=== PATIENT | male | born 1960 | race Caucasian/White ===

== ENCOUNTER 2016-08-12 07:28 | Observation (INO) | payer OTHER ==
--- NOTE | 2016-08-12 08:02 | EDM.PDOC ---
ED HPI GENERAL MEDICAL PROBLEM - General Chief Complaint: Chest Pain Stated Complaint: DIZZY Time Seen by Provider: 08/12/16 07:44 - History of Present Illness INITIAL COMMENTS - FREE TEXT/NARRATIVE: HISTORY AND PHYSICAL: History of present illness: Patient's age 56-year-old white male presents with concern of dizziness confusion chest pain intermittent dyspnea over last 24-48 hours he states he does drink regularly but denies history of known alcoholism he denies drugs denies trauma denies numbness weakness visual disturbance or other neurological signs or symptoms Review of systems: As per history of present illness and below otherwise all systems reviewed and negative. Past medical history: As per history of present illness and as reviewed below otherwise noncontributory. Surgical history: As per history of present illness and as reviewed below otherwise noncontributory. Social history: No reported history of drug or alcohol abuse. Family history: As per history of present illness and as reviewed below otherwise noncontributory. Physical exam: HEENT: Atraumatic, normocephalic, pupils reactive, negative for conjunctival pallor or scleral icterus, mucous membranes moist, throat clear, neck supple, nontender, trachea midline. Lungs: Clear to auscultation, breath sounds equal bilaterally, chest nontender. Heart: S1S2, regular, negative for clicks, rubs, or JVD. Abdomen: Soft, nondistended, nontender. Negative for masses or hepatosplenomegaly. Negative for costovertebral tenderness. Pelvis: Stable nontender. Genitourinary: Deferred. Rectal: Deferred. Extremities: Atraumatic, negative for cords or calf pain. Neurovascular unremarkable. Neuro: Awake, alert, oriented. Cranial nerves II through XII unremarkable. Cerebellum unremarkable. Motor and sensory unremarkable throughout. Exam nonfocal. Diagnostics: CBC CMP troponin PT INR ammonia level carboxyhemoglobin chest x-ray EKG CT brain EtOH UDS ABG Therapeutics: IV O2 monitor Impression: #1 dizziness #2 history of chest pain #3 history of dyspnea #4 altered mental status Definitive disposition and diagnosis as appropriate pending reevaluation and review of above. - Related Data Allergies Allergy/AdvReac Type Severity Reaction Status Date / Time No Known Allergies Allergy Verified 08/12/16 07:35 Home Meds: Home Meds Finasteride 1 tab PO DAILY 01/30/16 [History] Meloxicam [Mobic] 1 tab PO DAILY 01/30/16 [History] Naproxen Sodium [Aleve] 1 tab PO DAILY PRN 01/30/16 [History] Tamsulosin HCl [Flomax] 0.4 mg PO DAILY 01/30/16 [History] Past Medical History HEENT History: Reports: None Cardiovascular History: Reports: None Respiratory History: Reports: Asthma, COPD, SOB Gastrointestinal History: Reports: GERD Other Gastrointestinal History: Occasional heartburn/GERD Genitourinary History: Reports: BPH Musculoskeletal History: Reports: Back pain, chronic, Fracture, Other (see below ) Other Musculoskeletal History: Right shoulder pain after injury, current fracture Rt Index finger Neurological History: Reports: None Psychiatric History: Reports: None Endocrine/Metabolic History: Reports: Obesity/BMI 30+ Hematologic History: Reports: None Immunologic History: Reports: None Oncologic (Cancer) History: Reports: None Dermatologic History: Reports: Other (see below) Other Dermatologic History: "Jock itch", tried many things...not clearing - Infectious Disease History Infectious Disease History: Reports: Chicken pox, Measles - Past Surgical History Head Surgeries/Procedures: Reports: None HEENT Surgical History: Reports: Oral surgery Respiratory Surgical History: Reports: None GI Surgical History: Reports: Appendectomy, Colonoscopy Endocrine Surgical History: Reports: None Neurological Surgical History: Reports: None Musculoskeletal Surgical History: Reports: None - History Comment History Comment: etoh "DAILY" Social & Family History - Family History Family Medical History: Noncontributory - Tobacco Use Smoking Status *Q: Current Some Day Smoker Packs/Tins Daily: 0.5 - Caffeine Use Caffeine Use: Reports: Coffee - Recreational Drug Use Recreational Drug Use: No Drug Use in Last 12 Months: No Recreational Drug Type: Reports: Marijuana/Hashish (NONE FOR 15 YEARS.) Other Recreational Drug Type: [place] not relevant, he answered "no drugs for 30 yrs, denies any use of injectible drugs" ED ROS GENERAL - Review of Systems Review Of Systems: ROS reveals no pertinent complaints other than HPI. ED EXAM, GENERAL - Physical Exam Exam: See Below (See dictation) Course - Vital Signs Last Recorded V/S: Last Vital Signs Temp 36.1 C 08/12/16 07:30 Pulse 78 08/12/16 07:30 Resp 18 08/12/16 07:30 BP 146/105 H 08/12/16 07:30 Pulse Ox 98 08/12/16 07:54 - Orders/Labs/Meds Orders: Active Orders 24 hr Category Date Time Status Patient Status [ADT] Stat ADT 08/12/16 09:44 Ordered Blood Glucose Check, Bedside [RC] ONETIME Care 08/12/16 07:41 Active Cardiac Monitoring [RC] . DIRECTED Care 08/12/16 07:39 Active EKG Documentation Completion [RC] STAT Care 08/12/16 07:39 Active Oxygen Therapy, ED [RC] ASDIRECTED Care 08/12/16 07:39 Active Head wo Cont [CT] Stat Exams 08/12/16 07:39 Taken MVI, Adult with Vitamin K [Infuvite Adult] 10 ml Med 08/12/16 09:41 Active Thiamine [Vitamin B-1] 100 mg Folic Acid 1 mg Sodium Chloride 0.9% [Normal Saline] 1,000 ml IV ONETIME Medication Orders Multivitamins/Minerals 10 ml/Thiamine HCl 100 mg/ Folic Acid 1 mg/ Sodium Chloride 1,011.2 mls @ 999 mls/hr IV ONETIME ONE Stop: 08/12/16 10:41 Labs: Laboratory Tests 08/12/16 08/12/16 08/12/16 Range/Units 07:40 07:40 07:40 WBC 7.53 (4.0-11.0) K/uL RBC 4.47 L (4.50-5.90) M/uL Hgb 14.5 (13.0-17.0) g/dL Hct 43.9 (38.0-50.0) % MCV 98.2 H (80.0-98.0) fL MCH 32.4 H (27.0-32.0) pg MCHC 33.0 (31.0-37.0) g/dL RDW Std Deviation 46.6 (28.0-62.0) fl RDW Coeff of Natalie 13 (11.0-15.0) % Plt Count 275 (150-400) K/uL MPV 8.90 (7.40-12.00) fL Neut % (Auto) 46.0 L (48.0-80.0) % Lymph % (Auto) 45.3 H (16.0-40.0) % [place] % (Auto) 4.4 (0.0-15.0) % Eos % (Auto) 3.9 (0.0-7.0) % Baso % (Auto) 0.4 (0.0-1.5) % Neut # (Auto) 3.5 (1.4-5.7) K/uL Lymph # (Auto) 3.4 H (0.6-2.4) K/uL [place] # (Auto) 0.3 (0.0-0.8) K/uL Eos # (Auto) 0.3 (0.0-0.7) K/uL Baso # (Auto) 0.0 (0.0-0.1) K/uL Nucleated RBC % 0.0 /100WBC Nucleated RBCs # 0 K/uL ABG pH (7.35-7.45) ABG pCO2 (35-45) mmHG ABG pO2 (75-100) mmHG ABG HCO3 (22-26) mEq/L ABG Total CO2 ABG Base Excess (-2.0-2.0) ABG Carboxyhemoglobin (0-15) % Sodium 142 (136-146) mmol/L Potassium 3.9 (3.5-5.1) mmol/L Chloride 108 (98-110) mmol/L Carbon Dioxide 23 (21-31) mmol/L BUN 21 (6.0-23.0) mg/dL Creatinine 1.0 (0.6-1.5) mg/dL Est Cr Clr Drug Dosing 76.20 mL/min Estimated GFR (MDRD) > 60.0 ml/min Glucose 98 (60-110) mg/dL Calcium 8.4 L (8.8-10.8) mg/dL Total Bilirubin 0.5 (0.1-1.5) mg/dL AST 33 (5-40) IU/L ALT 24 (8-54) IU/L Alkaline Phosphatase 51 (40-150) Ammonia (14-68) UG/DL Troponin I < 0.10 (0.0-0.29) NG/ML Total Protein 7.7 (6.0-8.0) g/dL Albumin 3.9 (3.5-5.0) g/dL Globulin 3.8 H (2.0-3.5) g/dL Albumin/Globulin Ratio 1.0 L (1.3-2.8) Urine Opiates Screen (NEGATIVE) Ur Oxycodone Screen (NEGATIVE) Urine Methadone Screen (NEGATIVE) Ur Barbiturates Screen (NEGATIVE) Ur Phencyclidine Scrn (NEGATIVE) Ur Amphetamine Screen (NEGATIVE) U Methamphetamines Scrn (NEGATIVE) U Benzodiazepines Scrn (NEGATIVE) U Cocaine Metab Screen (NEGATIVE) U Marijuana (THC) Screen (NEGATIVE) Ethyl Alcohol 123.3 mg/dL 08/12/16 08/12/16 08/12/16 Range/Units 07:40 07:40 08:17 WBC (4.0-11.0) K/uL RBC (4.50-5.90) M/uL Hgb (13.0-17.0) g/dL Hct (38.0-50.0) % MCV (80.0-98.0) fL MCH (27.0-32.0) pg MCHC (31.0-37.0) g/dL RDW Std Deviation (28.0-62.0) fl RDW Coeff of Natalie (11.0-15.0) % Plt Count (150-400) K/uL MPV (7.40-12.00) fL Neut % (Auto) (48.0-80.0) % Lymph % (Auto) (16.0-40.0) % [place] % (Auto) (0.0-15.0) % Eos % (Auto) (0.0-7.0) % Baso % (Auto) (0.0-1.5) % Neut # (Auto) (1.4-5.7) K/uL Lymph # (Auto) (0.6-2.4) K/uL [place] # (Auto) (0.0-0.8) K/uL Eos # (Auto) (0.0-0.7) K/uL Baso # (Auto) (0.0-0.1) K/uL Nucleated RBC % /100WBC Nucleated RBCs # K/uL ABG pH 7.398 (7.35-7.45) ABG pCO2 37 (35-45) mmHG ABG pO2 80 (75-100) mmHG ABG HCO3 23 (22-26) mEq/L ABG Total CO2 20.3 ABG Base Excess -1.5 (-2.0-2.0) ABG Carboxyhemoglobin 2.5 (0-15) % Sodium (136-146) mmol/L Potassium (3.5-5.1) mmol/L Chloride (98-110) mmol/L Carbon Dioxide (21-31) mmol/L BUN (6.0-23.0) mg/dL Creatinine (0.6-1.5) mg/dL Est Cr Clr Drug Dosing mL/min Estimated GFR (MDRD) ml/min Glucose (60-110) mg/dL Calcium (8.8-10.8) mg/dL Total Bilirubin (0.1-1.5) mg/dL AST (5-40) IU/L ALT (8-54) IU/L Alkaline Phosphatase (40-150) Ammonia 34 (14-68) UG/DL Troponin I (0.0-0.29) NG/ML Total Protein (6.0-8.0) g/dL Albumin (3.5-5.0) g/dL Globulin (2.0-3.5) g/dL Albumin/Globulin Ratio (1.3-2.8) Urine Opiates Screen (NEGATIVE) Ur Oxycodone Screen (NEGATIVE) Urine Methadone Screen (NEGATIVE) Ur Barbiturates Screen (NEGATIVE) Ur Phencyclidine Scrn (NEGATIVE) Ur Amphetamine Screen (NEGATIVE) U Methamphetamines Scrn (NEGATIVE) U Benzodiazepines Scrn (NEGATIVE) U Cocaine Metab Screen (NEGATIVE) U Marijuana (THC) Screen (NEGATIVE) Ethyl Alcohol mg/dL 08/12/16 Range/Units 08:35 WBC (4.0-11.0) K/uL RBC (4.50-5.90) M/uL Hgb (13.0-17.0) g/dL Hct (38.0-50.0) % MCV (80.0-98.0) fL MCH (27.0-32.0) pg MCHC (31.0-37.0) g/dL RDW Std Deviation (28.0-62.0) fl RDW Coeff of Natalie (11.0-15.0) % Plt Count (150-400) K/uL MPV (7.40-12.00) fL Neut % (Auto) (48.0-80.0) % Lymph % (Auto) (16.0-40.0) % [place] % (Auto) (0.0-15.0) % Eos % (Auto) (0.0-7.0) % Baso % (Auto) (0.0-1.5) % Neut # (Auto) (1.4-5.7) K/uL Lymph # (Auto) (0.6-2.4) K/uL [place] # (Auto) (0.0-0.8) K/uL Eos # (Auto) (0.0-0.7) K/uL Baso # (Auto) (0.0-0.1) K/uL Nucleated RBC % /100WBC Nucleated RBCs # K/uL ABG pH (7.35-7.45) ABG pCO2 (35-45) mmHG ABG pO2 (75-100) mmHG ABG HCO3 (22-26) mEq/L ABG Total CO2 ABG Base Excess (-2.0-2.0) ABG Carboxyhemoglobin (0-15) % Sodium (136-146) mmol/L Potassium (3.5-5.1) mmol/L Chloride (98-110) mmol/L Carbon Dioxide (21-31) mmol/L BUN (6.0-23.0) mg/dL Creatinine (0.6-1.5) mg/dL Est Cr Clr Drug Dosing mL/min Estimated GFR (MDRD) ml/min Glucose (60-110) mg/dL Calcium (8.8-10.8) mg/dL Total Bilirubin (0.1-1.5) mg/dL AST (5-40) IU/L ALT (8-54) IU/L Alkaline Phosphatase (40-150) Ammonia (14-68) UG/DL Troponin I (0.0-0.29) NG/ML Total Protein (6.0-8.0) g/dL Albumin (3.5-5.0) g/dL Globulin (2.0-3.5) g/dL Albumin/Globulin Ratio (1.3-2.8) Urine Opiates Screen NEGATIVE (NEGATIVE) Ur Oxycodone Screen NEGATIVE (NEGATIVE) Urine Methadone Screen NEGATIVE (NEGATIVE) Ur Barbiturates Screen NEGATIVE (NEGATIVE) Ur Phencyclidine Scrn NEGATIVE (NEGATIVE) Ur Amphetamine Screen NEGATIVE (NEGATIVE) U Methamphetamines Scrn NEGATIVE (NEGATIVE) U Benzodiazepines Scrn NEGATIVE (NEGATIVE) U Cocaine Metab Screen NEGATIVE (NEGATIVE) U Marijuana (THC) Screen NEGATIVE (NEGATIVE) Ethyl Alcohol mg/dL Meds: Medications Generic Name Dose Route Start Last Admin Trade Name [place] PRN Reason Stop Dose Admin Multivitamins/Minerals 10 ml/ 1,011.2 mls @ 999 mls/hr 08/12/16 09:41 Thiamine HCl 100 mg/ Folic IV 08/12/16 10:41 Acid 1 mg/ Sodium Chloride ONETIME ONE Departure - Departure Time of Disposition: 09:45 Disposition: Refer to Observation Condition: good Clinical Impression: Altered mental status, Alcohol abuse, Chest pain, Dyspnea Forms: ED Department Discharge - My Orders Last 24 Hours: My Active Orders 08/12/16 07:39 Cardiac Monitoring [RC] . DIRECTED EKG Documentation Completion [RC] STAT Oxygen Therapy, ED [RC] ASDIRECTED Head wo Cont [CT] Stat 08/12/16 07:41 Blood Glucose Check, Bedside [RC] ONETIME 08/12/16 09:41 MVI, Adult with Vitamin K [Infuvite Adult] 10 ml Thiamine [Vitamin B-1] 100 mg Folic Acid 1 mg Sodium Chloride 0.9% [Normal Saline] 1,000 ml IV ONETIME 08/12/16 09:44 Patient Status [ADT] Stat - Assessment/Plan Last 24 Hours: My Active Orders 08/12/16 07:39 Cardiac Monitoring [RC] . DIRECTED EKG Documentation Completion [RC] STAT Oxygen Therapy, ED [RC] ASDIRECTED Head wo Cont [CT] Stat 08/12/16 07:41 Blood Glucose Check, Bedside [RC] ONETIME 08/12/16 09:41 MVI, Adult with Vitamin K [Infuvite Adult] 10 ml Thiamine [Vitamin B-1] 100 mg Folic Acid 1 mg Sodium Chloride 0.9% [Normal Saline] 1,000 ml IV ONETIME 08/12/16 09:44 Patient Status [ADT] Stat
[2016-08-12 08:19] LABS: CHLORIDE,CL 108 mmol/L (98-110); SODIUM,NA 142 mmol/L (136-146)
--- NOTE | 2016-08-12 08:30 | CR ---
EXAMINATION: Portable chest radiograph. HISTORY: Confusion. FINDINGS: The trachea is midline. The cardiomediastinal silhouette is within normal limits. No pulmonary infil trates, effusions or pneumothorax. Osseous structures appear unremarkable. IMPRESSION: No acute cardiopulmonary process.
[2016-08-12] MEDS ORDERED: MVI, Adult with Vitamin K 10 ML, Thiamine 100 MG, Folic Acid 1 MG in Sodium Chloride 0.... IV ONE ×4 (09:41)
[2016-08-12] MEDS ORDERED: Acetaminophen 325 MG Tab PO PRN (10:06)
[2016-08-12] MEDS ORDERED: Ondansetron 4 MG/2 ML SDV IVPUSH PRN (10:06)
[2016-08-12] MEDS ORDERED: Sodium Chloride 0.9% 2.5 ML Syringe FLUSH PRN (10:06)
--- NOTE | 2016-08-12 10:06 | PCM.HP ---
H&P History of Present Illness - General Date of Service: 08/12/16 Admit Problem/Dx: dizziness, AMS L arm numbness Source of Information: Patient History Limitations: Reports: No limitations, Intoxication. Denies: Altered mental status - History of Present Illness Initial Comments - Free Text/Narative: This 56 year old male with pmh of BPH and ETOH abuse presented to the ED this am with multiple vague complaints. He reports he woke up this morning for work felt a little disoriented and confused, dizzy and have some L arm numbness/ discomfort. He denies any chest pain or SOB. No palpitations, abdominal pain or urinary symptoms. No headache. He feels as though his head is full, no recent URI, no fever, has had a chronic cough over the past 6 months. He denies any cardiovascular probelems, such as HTN, dyslipidemia, no hx of CVA or TIA. Mother did have CA in her 30-40s and has CHF. NO hx of DM. He reports he drinks 6-8 beers and 3-4 whiskey shots per evening and has done so for many years. Denies wanting inpatient help but is slightly open to outpatient resources. "I didn't know my drinking was a big deal until this morning." Uses 1 tin of chewing tobacco a week for many years. No recreational drug use in years. In the ED CBC and BMP WNL. Tox screen negative, Ehtyl alcohol 123.3, Troponin negative EKG Sr 70s, no ST segment changes. CXR negative. Head CT negative for mass or hemorrhage, did reveal mild mucosal thickening seen within the maxillary sinuses and sphenoid sinus, no acute sinusitis but mild chronic sinus disease. He will be admitted for observation due to L arm numbness/discomfort and dizziness. PCP, Dr Dave Posada - Related Data Allergies/Adverse Reactions: Allergies Allergy/AdvReac Type Severity Reaction Status Date / Time No Known Allergies Allergy Verified 08/12/16 07:35 Home Medications: Home Meds Finasteride 1 tab PO DAILY 01/30/16 [History] Meloxicam [Mobic] 1 tab PO DAILY 01/30/16 [History] Naproxen Sodium [Aleve] 1 tab PO DAILY PRN 01/30/16 [History] Tamsulosin HCl [Flomax] 0.4 mg PO DAILY 01/30/16 [History] Past Medical History HEENT History: Reports: None Cardiovascular History: Reports: None. Denies: Afib, Blood clots/VTE/DVT, Heart Failure, High cholesterol, Hypertension, CA Respiratory History: Reports: Asthma, SOB (intermittently). Denies: COPD, PE Gastrointestinal History: Reports: Colon polyp (removed last year 01/2016), GERD. Denies: Diverticulosis, GI bleed Other Gastrointestinal History: Occasional heartburn/GERD Genitourinary History: Reports: BPH. Denies: Acute renal failure, Chronic renal insuffiency Musculoskeletal History: Reports: Back pain, chronic (herniated disc), Fracture , Other (see below) Other Musculoskeletal History: Right shoulder pain after injury, current fracture Rt Index finger Neurological History: Reports: None. Denies: Brain injury, CVA, TIA, Vertigo Psychiatric History: Reports: Addiction (ETOH) Endocrine/Metabolic History: Reports: Obesity/BMI 30+. Denies: Diabetes, type II, Hypothyroidism Hematologic History: Reports: None Immunologic History: Reports: None Oncologic (Cancer) History: Reports: None - Infectious Disease History Infectious Disease History: Reports: Chicken pox, Measles - Past Surgical History Head Surgeries/Procedures: Reports: None HEENT Surgical History: Reports: Oral surgery Respiratory Surgical History: Reports: None GI Surgical History: Reports: Appendectomy, Colonoscopy Endocrine Surgical History: Reports: None Neurological Surgical History: Reports: None Musculoskeletal Surgical History: Reports: None - History Comment History Comment: etoh "DAILY" Social & Family History - Family History Family Medical History: Noncontributory - Tobacco Use Smoking Status *Q: Current Some Day Smoker Tobacco Use Within Last Twelve Months: Smokeless Tobacco Packs/Tins Daily: 0.1 - Caffeine Use Caffeine Use: Reports: Coffee (1/2 pot per day) - Alcohol Use Alcohol Use History: Yes Days Per Week of Alcohol Use: 7 Number of Drinks Per Day: 10 Total Drinks Per Week: 70 Alcohol Use Frequency: Daily - Recreational Drug Use Recreational Drug Use: No Drug Use in Last 12 Months: No Recreational Drug Type: Reports: Marijuana/Hashish (NONE FOR 15 YEARS.) Other Recreational Drug Type: [place] not relevant, he answered "no drugs for 30 yrs, denies any use of injectible drugs" - Living Situation & Occupation Living situation: Reports: Occupation: employed H&P Review of Systems - Review of Systems: Review Of Systems: See Below General: Reports: no symptoms. Denies: fever, chills, malaise HEENT: Denies: ear pain (ear fullness and head fullness), headaches, visual changes Pulmonary: Reports: Shortness of Breath (intermittently), Cough (non productive chronic) Cardiovascular: Reports: lightheadedness. Denies: chest pain, palpitations, edema Gastrointestinal: Reports: No symptoms. Denies: Abdominal pain, Black stool, Bloody stool, Nausea, Vomiting Genitourinary: Reports: no symptoms. Denies: dysuria, frequency, burning Musculoskeletal: Reports: no symptoms Skin: Reports: no symptoms Psychiatric: Reports: no symptoms Neurological: Reports: Dizziness, Numbness (L arm with some discomfort), Tremors. Denies: Headache, Seizure Hematologic/Lymphatic: Reports: no symptoms Immunologic: Reports: no symptoms Exam - Exam Exam: See Below - Vital Signs Vital Signs: Last Vital Signs Temp 96.9 F 08/12/16 07:30 Pulse 78 08/12/16 07:30 Resp 18 08/12/16 07:30 BP 146/105 H 08/12/16 07:30 Pulse Ox 98 08/12/16 07:54 Weight: 93.6 kg - Exam General: alert, oriented, cooperative HEENT: Conjunctiva clear, Mucosa moist & pink, Nares patent, Posterior pharynx clear, Pupils reactive, TMs clear Neck: supple, trachea midline, full range of motion. No: lymphadenopathy, JVD Lungs: Clear to auscultation, Normal respiratory effort Cardiovascular: regular rate, regular rhythm, normal S1, normal S2. No: irregular rhythm Abdomen: normal bowel sounds, soft. No: organomegaly, guarding, rigidity, tenderness Back Exam: normal inspection, full range of motion, NT Extremities: normal inspection, normal pulses. No: calf tenderness, edema Neurological: cranial nerves intact, reflexes equal bilateral, normal gait, normal speech, normal tone. No: strength equal bilateral (slightly diminished to L manager quantitative strength), hyperreflexia Neuro Extensive - Mental Status: alert, oriented x3, normal mood/affect, normal cognition, memory intact Neuro Extensive - Motor, Sensory, Reflexes: CN II-XII intact, normal gait, tremor (bilateral hands, likely alcohol withdrawal related. Nystagmus noted to R , with increasin dizziness slightly. ). No: facial palsy (L), facial palsy (R) , pronator drift (L), pronator drift (R) Psychiatric: alert, normal affect, normal mood - Patient Data Result Diagrams: 08/12/16 07:40 08/12/16 07:40 EKG INTERPRETATION EKG Date: 08/12/16 Rhythm: NSR Rate (beats/min): 74 [place]: normal P-wave: present QRS: normal ST-T: normal QT: normal Comparison: NA - no prior EKG *Q Meaningful Use (ADM) - VTE *Q VTE Criteria *Q: - Stroke *Q Stroke Criteria *Q: - AMI *Q AMI Criteria *Q: - Problem List (1) Left arm numbness SNOMED Code(s): 952789969 ICD Code: R20.0 - ANESTHESIA OF SKIN Status: Acute Current Visit: Yes (2) Disorientation SNOMED Code(s): 50153904 ICD Code: R41.0 - DISORIENTATION, UNSPECIFIED Status: Acute Current Visit : Yes (3) Dizziness SNOMED Code(s): 711980812, 035905536 ICD Code: R42 - DIZZINESS AND GIDDINESS Status: Acute Current Visit: Yes (4) BPH (benign prostatic hyperplasia) SNOMED Code(s): 685921428, 125028267 ICD Code: N40.0 - BENIGN PROSTATIC HYPERPLASIA WITHOUT LOWER URINRY TRACT SYMP Status: Chronic Current Visit: Yes Qualifiers: Prostatic enlargement morphology: unspecified morphology Lower urinary tract symptom presence: symptoms absent Qualified Code(s): N40.0 - Benign prostatic hyperplasia without lower urinary tract symptoms (5) Alcohol abuse SNOMED Code(s): 19593083 ICD Code: F10.10 - ALCOHOL ABUSE, UNCOMPLICATED Status: Chronic Current Visit: Yes Problem List Initiated/Reviewed/Updated: Yes Orders Last 24hrs: Active Orders 24 hr Category Date Time Status Telemetry Monitoring [Cardiac Monitoring] [RC] . Care 08/12/16 10:04 Ordered DIRECTED Medication Orders Multivitamins/Minerals 10 ml/Thiamine HCl 100 mg/ Folic Acid 1 mg/ Sodium Chloride 1,011.2 mls @ 999 mls/hr IV ONETIME ONE Stop: 08/12/16 10:41 Last Admin: 08/12/16 09:54 Dose: 999 mls/hr Assessment/Plan Comment:: This 56 year old male admitted with L arm numbness/discomfort, dizziness and disorientation 1. L arm numbness/discomfort: Spoke with Dr. Moya regarding vague complaints, she did recommend head and neck MRI to r/o CVA. She otherwise some of these symptoms may be related to alcohol use. If MRI returns with concerns of CVA she will see patient, I will keep her informed. Will monitor on telemetry. Also obtain ECHO and carotid U/S. 2. Chest pain: Vague complaints in ED. Will obtain serial troponins. Monitor on telemetry. Lipid panel and A1c. 3. Alcohol abuse: Uses large amount of alcohol at home for many years, never has withdrawn. Tremulous during exam. Will add CIWAA and Ativan protocol. Monitor closely, may need ICU monitoring if withdrawal worsens. 4. Chronic sinusitis: Will add Flonase, Loratadine, and Augmentin. 5. BPH: Continue Finasteride and Flomax. VTE: SCDs DIspo; 1-2 days pending imaging and improvement.
--- NOTE | 2016-08-12 10:10 | CT ---
EXAM DATE: 08/12/16 PATIENT'S AGE: 56 Patient: RIANNA STOREY Facility: [place], [place] Site . Site : 1960 Study: CT Head [id number]/2017 8:20:34 AM Ordering Physician: Doctor Leigh Final Report: HISTORY: Dizziness x3 days, confusion. Ears feel full. TECHNIQUE: Head was scanned in axial plane at 3 mm intervals without IV contrast. Reconstructed bone windows obtained as well as sagittal and reconstructions. FINDINGS: There is mild mucosal thickening seen within the maxillary sinuses and sphenoid sinus. Ethmoid air cells and frontal sinuses are well aerated. Mastoid air cells and middle ears are well aerated. The calvarium is intact. The ventricles and sulci are normal size, shape and position. No intra-axial mass, edema or midline shift is identified. No extra-axial fluid collections are seen. Mann-white differentiation is preserved. IMPRESSION: 1. Mild mucosal thickening seen within the sphenoid sinus and maxillary sinuses consistent with mild chronic sinus disease. No acute sinusitis. 2. No acute intracranial pathology or bleed. Dictated by Shu Seymour MD @ 08/12/2016 8:35:05 AM Dictated by: Shu Seymour MD @ 08/12/2016 08:35:15 (Electronic Signature) Report Signed by Proxy and Original Signed Document filed in the Medical Record. MTDD
[2016-08-12] MEDS ORDERED: Sodium Chloride 0.9% 1,000 ML IV SCH (10:15)
[2016-08-12] MEDS ORDERED: Loratadine 10 MG Tab PO SCH (10:30)
[2016-08-12] MEDS ORDERED: Fluticasone Propionate Nasal Spray 16 GM Bottle NASBOTH SCH (10:30)
[2016-08-12] MEDS ORDERED: LORazepam 2 MG/ML MDV IVPUSH PRN (11:38)
--- NOTE | 2016-08-12 13:08 | US ---
EXAMINATION: Carotid US with magallanes scale and duplex imaging. HISTORY: Dizziness FINDINGS: Ultrasound examination of bilateral cervical carotid arteries was performed using magallanes scale and dup wally imaging. Minimal atheromatous disease is noted within the carotid arteries bilaterally. Antegr kinjal flow is noted within the vertebrals. These are the peak velocities in cm per second (systole), right and left respectively, by a comma: CCA (common carotid artery) - 107, 122 ICA (internal carotid artery) - 82, 57 ECA (External carotid artery) - 162, 109 ICA/CCA systolic ratio Right - less than 1 Left - less than 1 IMPRESSION: Minimal atheromatous plaque without significant elevated velocities identified to suggest greater th an 50% stenosis.
--- NOTE | 2016-08-12 14:44 | MR ---
EXAMINATION: MRI of the brain with and without contrast. TECHNIQUE: Multiplanar and multisequence imaging of the brain without and following the administrati on of 17 mL of MultiHance. HISTORY: Left arm numbness. FINDINGS: Cerebral hemispheres and the deep nuclei are without hemorrhage, mass, edema, gliosis, enhancement o r atrophy. No extraaxial collections or hemorrhage. The ventricular system is of normal size and configuration without hydrocephalus. No abnormal diffusion restriction. Brainstem and cerebellum are without hemorrhage, mass, edema, gliosis, enhancement or atrophy. The carotid basilar artery flow voids are intact. There is a trace fluid within the right mastoid air cells. No internal auditory canal or cerebellopo ntine angle masses or enhancement. There is mild mucosal thickening within the maxillary sinuses. The globes, optic nerves, orbital api sarah, optic chiasm, optic tracts, and visual cortices are unremarkable. The pituitary and sella tur cica are unremarkable. No meningeal enhancement. No evidence of meningitis. The craniocervical ju nction is unremarkable. No siderosis or evidence of vascular malformation. The calvarium is intact . IMPRESSION: 1. No acute intracranial findings.
[2016-08-12] MEDS: Amoxicillin/Clavulanate K 875-125 MG Tab PO SCH ×2 (14:51→20:47)
--- NOTE | 2016-08-12 14:58 | MR ---
EXAMINATION: MRI of the cervical spine with and without contrast HISTORY: Numbness COMPARISON: None TECHNIQUE: Multiplanar and multisequence images obtained through the cervical spine before and follo wing the administration of 17 mL of MultiHance. FINDINGS: The cervical spinal alignment appears normal. The vertebral body heights appear grossly ma intained. The cervical spinal cord signal is normal. There is no abnormal enhancement. Endplate sign al changes noted at C5-C6 and C6-C7. No suspicious bone marrow signal changes. C2-C3: Unremarkable. C3-C4: Unremarkable. C4-C5: Unremarkable. C5-C6: Small to moderate diffuse disc bulge with mild spinal canal stenosis. There is mild left neur al foraminal stenosis accentuated by uncovertebral hypertrophy. C6-C7: Moderate diffuse disc bulge with mild spinal canal stenosis. Mild to moderate bilateral neura l foraminal stenosis. C7-T1: Unremarkable. IMPRESSION: 1. Multilevel degenerative disc disease is noted most prominent at C5-C6 and C6-C7 with individual d etails above.
--- NOTE | 2016-08-12 21:42 | PCM.DCSUM1 ---
Discharge Summary - Hospital Course Brief History: he was admitted with multiple symptoms and generalized malaise as per history and physical examination. He had some aching in his left arm. - Discharge Data Discharge Date: 08/12/16 Discharge Disposition: Home, Self-Care 01 Condition: Good - Patient Summary/Data Consults: Consultations 08/12/16 15:04 Consult to Physical Therapy [PT Evaluation and Treatment] [CONS] Routine Hospital Course: Serial troponins were negative. MRI and CT of the head showed maxillary and sphenoid sinus thickening c/w chronic sinusitis. He was started on antibiotics. carotid ultrasound showed mild atherosclerotic disease with no evidence of obstruction greater than 50 %. MRI of the neck showed mild cervical spine stenosis and neural formaminal impingement at the C6-7 level. troponins x 3 were negative Echocardiogram was done but results are pending. We also discussed his heavy alcohol intake. He wants to try to decrease alcohol on his own at this time. He said this was a "wake up call" . I advised no more than 2 beers/day. Diagnosis: chronic sinusitis;cervical spinal stenosis; neural formainal impingement C6-7 level. Discharge home Follow up with Dr. Albino MD amoxil 500 mg po tid x ten days Wei Bates MD - Discharge Plan Prescriptions/Med Rec: Amoxicillin 500 mg PO TID #30 capsule Home Medications: Home Meds Finasteride 1 tab PO DAILY 01/30/16 [History] Meloxicam [Mobic] 1 tab PO DAILY 01/30/16 [History] Naproxen Sodium [Aleve] 1 tab PO DAILY PRN 01/30/16 [History] Tamsulosin HCl [Flomax] 0.4 mg PO DAILY 01/30/16 [History] Amoxicillin 500 mg PO TID #30 capsule 08/12/16 [Rx] Forms: ED Department Discharge Referrals: PCP,None [Primary Care Provider] - - Patient Data Vitals - Most Recent: Last Vital Signs Temp 98.6 F 08/12/16 10:42 Pulse 83 08/12/16 10:42 Resp 18 08/12/16 10:42 BP 153/92 H 08/12/16 10:42 Pulse Ox 97 08/12/16 10:43 Orthostatic Blood Pressure [ 158/94 Standing] Orthostatic Blood Pressure [ 160/97 Sitting] Orthostatic Blood Pressure [ 163/96 Supine] Weight - Most Recent: 93.6 kg I&O - Last 24 hours: Intake & Output 08/12/16 08/12/16 08/12/16 06:59 14:59 22:59 Intake Total 600 Output Total 400 Balance 200 Lab Results - Last 24 hrs: Laboratory Results - last 24 hr 08/12/16 08/12/16 Range/Units 14:53 20:51 Troponin I < 0.10 < 0.10 (0.0-0.29) NG/ML Med Orders - Current: Current Medications Acetaminophen (Tylenol) 650 mg PO Q4H PRN PRN Reason: Pain Amoxicillin/Clavulanate Potassium (Augmentin 875 Mg/125 Mg) 1 tab PO Q12HR [facility] Last Admin: 08/12/16 20:47 Dose: 1 tab Finasteride (Proscar) 5 mg PO DAILY [facility] Fluticasone Propionate (Flonase) 0 gm NASBOTH DAILY [facility] Last Admin: 08/12/16 11:01 Dose: 2 sprays Sodium Chloride (Normal Saline) 1,000 mls @ 125 mls/hr IV ASDIRECTED [facility] Last Admin: 08/12/16 11:02 Dose: 125 mls/hr Loratadine (Claritin) 10 mg PO DAILY [facility] Last Admin: 08/12/16 11:00 Dose: 10 mg Lorazepam (Ativan) 0 mg IVPUSH Q4H PRN; Protocol PRN Reason: alochol withdrawal Ondansetron HCl (Zofran) 4 mg IVPUSH Q4H PRN PRN Reason: Nausea Sodium Chloride (Saline Flush) 2.5 ml FLUSH ASDIRECTED PRN PRN Reason: Keep Vein Open Tamsulosin HCl (Flomax) 0.4 mg PO DAILY [facility] Discontinued Medications Multivitamins/Minerals 10 ml/Thiamine HCl 100 mg/ Folic Acid 1 mg/ Sodium Chloride 1,011.2 mls @ 999 mls/hr IV ONETIME ONE Stop: 08/12/16 10:41 Last Admin: 08/12/16 09:54 Dose: 999 mls/hr *Q Meaningful Use (DIS) - VTE *Q VTE Criteria *Q: - Stroke *Q Stroke Criteria *Q: - AMI *Q AMI Criteria *Q:
[2016-08-12 22:27] VITALS: BP 165/91
[2016-08-13] MEDS ORDERED: Tamsulosin 0.4 MG Cap.ER PO SCH (09:00)
[2016-08-13] MEDS ORDERED: Finasteride 5 MG Tab PO SCH (09:00)
--- NOTE | 2016-08-16 11:43 | ECHO ---
EXAM DATE: 08/12/16 The echocardiogram report can be seen in this patient's EMR (Electronic Medical Record) in the Reports section. SPR[place]
== END 2016-08-12 22:20 | disposition home or self-care (01) ==
LOC: MW.ED 07:28 → MW.MS 09:46
PROVIDERS: ADMIT Family Medicine; ATTEND Family Medicine
DX: R07.9 Chest pain, unspecified (principal); R42 Dizziness and giddiness; M48.02 Spinal stenosis, cervical region; J32.9 Chronic sinusitis, unspecified; Z79.899 Other long term (current) drug therapy; J44.9 Chronic obstructive pulmonary disease, unspecified; J45.909 Unspecified asthma, uncomplicated; K21.9 Gastro-esophageal reflux disease without esophagitis; N40.0 Benign prostatic hyperplasia without lower urinary tract symptoms; E66.9 Obesity, unspecified; Z68.30 Body mass index [BMI] 30.0-30.9, adult; F17.200 Nicotine dependence, unspecified, uncomplicated; F10.10 Alcohol abuse, uncomplicated; F12.90 Cannabis use, unspecified, uncomplicated; R20.0 Anesthesia of skin
CPT/HCPCS: 36415; 36600; 70450; 70553; 71010; 72156; 80053; 80061; 80305; 82140; 82375; 82803; 83036; 83735; 84484; 85025; 93005; 93306; 93880; 96365; 99285; A9270; G0480; J3411; J7040; 96361; G0378

== ENCOUNTER 2018-06-23 13:05 | Emergency (ER) | payer OTHER ==
[2018-06-23 13:27] VITALS: BP 138/90
--- NOTE | 2018-06-23 13:30 | EDM.PDOC ---
ED HPI GENERAL MEDICAL PROBLEM - General Chief Complaint: Upper Extremity Injury/Pain Stated Complaint: SHOULDER INJURY Time Seen by Provider: 06/23/18 13:22 - History of Present Illness INITIAL COMMENTS - FREE TEXT/NARRATIVE: HISTORY AND PHYSICAL: History of present illness: Patient is a 58-year-old male here with complaint of left shoulder pain. He states that 2 days ago he was reaching for something when he felt a pull in his left shoulder. He said it was bothering her so much today but today when he went to go retrieve something and he felt a strain in the shoulder. He denies any distal pain, numbness, tingling. Review of systems: As per history of present illness and below otherwise all systems reviewed and negative. Past medical history: As per history of present illness and as reviewed below otherwise noncontributory. Surgical history: As per history of present illness and as reviewed below otherwise noncontributory. Social history: No reported history of drug or alcohol abuse. Family history: As per history of present illness and as reviewed below otherwise noncontributory. Physical exam: General: Patient sitting comfortably in no acute distress and nontoxic appearing HEENT: Atraumatic, normocephalic, pupils reactive, negative for conjunctival pallor or scleral icterus, mucous membranes moist, throat clear, neck supple, nontender, trachea midline. No meningeal signs. Lungs: Clear to auscultation, breath sounds equal bilaterally, chest nontender. Heart: S1S2, regular, negative for clicks, rubs, or overt murmur. Abdomen: Soft, nondistended, nontender. Negative for masses or hepatosplenomegaly. Negative for costovertebral tenderness. Pelvis: Stable nontender. Genitourinary: Deferred. Rectal: Deferred. Extremities: Minimal tenderness to palpation of the posterior aspect of the shoulder. Normal ROM of the shoulder with minimal discomfort. CMS intact distally Atraumatic, negative for cords or calf pain. Neurovascular unremarkable. Neuro: Awake, alert, oriented. Cranial nerves II through XII unremarkable. Cerebellum unremarkable. Motor and sensory unremarkable throughout. Exam nonfocal. Notes: Diagnostics: X-ray left shoulder Therapeutics: None Prescriptions: Impression: Left shoulder pain Plan: 1. Ice, motrin or tylenol as instructed 2. Follow up with orthopedics, please call the number provided to schedule an appointment 3. return to ED as needed as discussed Definitive disposition and diagnosis as appropriate pending reevaluation and review of above. Left Upper Back Pain Score (Numeric/FACES): 7 - Related Data Allergies Allergy/AdvReac Type Severity Reaction Status Date / Time No Known Allergies Allergy Verified 06/23/18 13:27 Home Meds: Home Meds . [Unable to Verify Home Med List] 06/23/18 [History] Past Medical History HEENT History: Reports: None Cardiovascular History: Reports: None. Denies: Afib, Blood Clots/VTE/DVT, Heart Failure, High Cholesterol, Hypertension, AL Respiratory History: Reports: Asthma, SOB (intermittently). Denies: COPD, PE Gastrointestinal History: Reports: Colon Polyp, GERD Other Gastrointestinal History: Occasional heartburn/GERD Genitourinary History: Reports: BPH. Denies: Acute Renal Failure, Chronic Renal Insuffiency Musculoskeletal History: Reports: Back Pain, Chronic, Fracture, Other (See Below ) Other Musculoskeletal History: Right shoulder pain after injury, current fracture Rt Index finger Neurological History: Reports: None. Denies: Brain Injury, CVA, TIA, Vertigo Psychiatric History: Reports: Addiction (ETOH) Endocrine/Metabolic History: Reports: Obesity/BMI 30+. Denies: Diabetes, Type II, Hypothyroidism Hematologic History: Reports: None Immunologic History: Reports: None Oncologic (Cancer) History: Reports: None Dermatologic History: Reports: Other (See Below) Other Dermatologic History: "Jock itch", tried many things...not clearing - Infectious Disease History Infectious Disease History: Reports: Chicken Pox, Measles - Past Surgical History HEENT Surgical History: Reports: Oral Surgery - History Comment History Comment: etoh "DAILY" Social & Family History - Family History Family Medical History: Noncontributory - Caffeine Use Caffeine Use: Reports: Coffee (1/2 pot per day) - Living Situation & Occupation Living situation: Reports: Occupation: Employed Review of Systems - Review of Systems Review Of Systems: ROS reveals no pertinent complaints other than HPI. ED EXAM, GENERAL - Physical Exam Exam: See Below (see dictation) Course - Vital Signs Last Recorded V/S: Last Vital Signs Temp 97.6 F 06/23/18 13:26 Pulse 99 06/23/18 13:26 Resp 18 06/23/18 13:26 BP 138/90 06/23/18 13:26 Pulse Ox 98 06/23/18 13:26 Departure - Departure Time of Disposition: 14:52 Disposition: Home, Self-Care 01 Condition: Good Clinical Impression: Left shoulder pain - Discharge Information Referrals: PCP,Unknown [Primary Care Provider] - Forms: ED Department Discharge Additional Instructions: The following information is given to patients seen in the emergency department who are being discharged to home. This information is to outline your options for follow-up care. We provide all patients seen in our emergency department with a follow-up referral. The need for follow-up, as well as the timing and circumstances, are variable depending upon the specifics of your emergency department visit. If you don't have a primary care physician on staff, we will provide you with a referral. We always advise you to contact your personal physician following an emergency department visit to inform them of the circumstance of the visit and for follow-up with them and/or the need for any referrals to a consulting specialist. The emergency department will also refer you to a specialist when appropriate. This referral assures that you have the opportunity for follow-up care with a specialist. All of these measure are taken in an effort to provide you with optimal care, which includes your follow-up. Under all circumstances we always encourage you to contact your private physician who remains a resource for coordinating your care. When calling for follow-up care, please make the office aware that this follow-up is from your recent emergency room visit. If for any reason you are refused follow-up, please contact the [facility] Emergency Department at and asked to speak to the emergency department charge nurse. [facility] - [facility] Professional [address], [address] [place] [address] 1. Ice, motrin or tylenol as instructed 2. Follow up with orthopedics, please call the number provided to schedule an appointment 3. return to ED as needed as discussed
--- NOTE | 2018-06-23 14:50 | CR ---
EXAMINATION: Left shoulder HISTORY: Pain COMPARISON: 06/17/2014 TECHNIQUE: 3 views FINDINGS/IMPRESSION: There is no acute osseous abnormality, dislocation, or fracture. Bone mineralization and joint spaces are preserved. Mild acromioclavicular osteoarthritic changes.
== END 2018-06-23 15:05 | disposition home or self-care (01) ==
LOC: MW.ED 13:05
DX: M25.512 Pain in left shoulder (principal)
CPT/HCPCS: 73030-26-LT; 73030-LT; 99283-25

== ENCOUNTER 2021-04-30 11:17 | Day surgery (SDC) | payer BC, OTHER ==
--- NOTE | 2021-04-30 08:38 | PCM.PREANE ---
Preanesthetic Assessment - Procedure Proposed Procedure: Colonoscopy - Anesthesia/Transfusion/Family Hx Anesthesia History: Prior Anesthesia Without Reaction Other Type of Anesthesia Reaction Comment: Had spinal attempted with appy "did not work, had general then" Family History of Anesthesia Reaction: No Transfusion History: No Prior Transfusion(s) - Review of Systems General: No Symptoms Pulmonary: No Symptoms (Wuit smoking x15yrs) Cardiovascular: No Symptoms Gastrointestinal: No Symptoms Neurological: No Symptoms Other: Reports: None (ETOH abuse) - Physical Assessment NPO Status Date: 04/30/21 NPO Status Time: 06:30 Vital Signs: Last Vital Signs Temp 96.4 F L 04/30/21 08:20 Pulse 78 04/30/21 08:20 Resp 16 04/30/21 08:20 BP 174/92 H 04/30/21 08:20 Pulse Ox 97 04/30/21 08:20 Height: 5 ft 7 in Weight: 83.007 kg ASA Class: 2 Mental Status: Alert & Oriented x3 Airway Class: Mallampati = 3 Dentition: Reports: Normal Dentition Thyro-Mental Finger Breadths: 3 Mouth Opening Finger Breadths: 2 ROM/Head Extension: Full Lungs: Clear to Auscultation, Normal Respiratory Effort Cardiovascular: Regular Rate, Regular Rhythm - Allergies Allergies/Adverse Reactions: Allergies Allergy/AdvReac Type Severity Reaction Status Date / Time No Known Allergies Allergy Verified 04/30/21 08:21 - Acknowledgements Anesthesia Type Planned: General Anesthesia Pt an Appropriate Candidate for the Planned Anesthesia: Yes Alternatives and Risks of Anesthesia Discussed w Pt/Guardian: Yes Pt/Guardian Understands and Agrees with Anesthesia Plan: Yes PreAnesthesia Questionnaire HEENT History: Reports: Other (See Below) Other HEENT History: wears glasses Cardiovascular History: Reports: None Respiratory History: Reports: Asthma Other Respiratory History: "slight asthma" not on inhalers, Gastrointestinal History: Reports: Colon Polyp Other Gastrointestinal History: Occasional heartburn Genitourinary History: Reports: BPH Other Genitourinary History: elevated PSA Musculoskeletal History: Reports: Arthritis, Back Pain, Chronic, Fracture, Other (See Below) Other Musculoskeletal History: Right shoulder pain after injury, hx fracture Rt Index finger, fx wrist as a child Neurological History: Reports: None Psychiatric History: Reports: None Endocrine/Metabolic History: Reports: None Hematologic History: Reports: None Immunologic History: Reports: None Oncologic (Cancer) History: Reports: Other (See Below) Other Oncologic History: elevated PSA Dermatologic History: Reports: Other (See Below) Other Dermatologic History: dry skin in the winter - Infectious Disease History Infectious Disease History: Reports: Chicken Pox, Measles - Past Surgical History Head Surgeries/Procedures: Reports: None HEENT Surgical History: Reports: Oral Surgery Cardiovascular Surgical History: Reports: None Respiratory Surgical History: Reports: None GI Surgical History: Reports: Appendectomy, Colonoscopy Male Surgical History: Reports: Other (See Below) Other Male Surgeries/Procedures: multiple prostate biopsies Endocrine Surgical History: Reports: None Neurological Surgical History: Reports: None Musculoskeletal Surgical History: Reports: Other (See Below) Other Musculoskeletal Surgeries/Procedures:: bone spurs removed from both little toes Oncologic Surgical History: Reports: None Dermatological Surgical History: Reports: None - History Comment History Comment: etoh "DAILY" - SUBSTANCE USE Tobacco Use Within Last Twelve Months: Other (See Below) Days Per Week of Alcohol Use: 7 Number of Drinks Per Day: 6 Total Drinks Per Week: 42 - HOME MEDS Home Medications: Home Meds Acetaminophen [Tylenol Arthritis] 1 - 2 tab PO ASDIRECTED PRN 04/27/21 [History] Celecoxib 200 mg PO DAILY 04/27/21 [History] Finasteride 5 mg PO DAILY 04/27/21 [History] Multivit-Min/Vit C/Herb No.124 [Airborne Chewable Tablet] 1 tab CHEW ASDIRECTED PRN 04/27/21 [History] Tamsulosin HCl [Flomax] 0.4 mg PO DAILY 04/27/21 [History] - CURRENT (IN HOUSE) MEDS Current Meds: Current Medications Lactated Ringer's (Ringers, Lactated) 1,000 mls @ 125 mls/hr IV ASDIRECTED [facility] Sodium Chloride (Sodium Chloride 0.9% 10 Ml Syringe) 10 ml FLUSH ASDIRECTED PRN PRN Reason: Keep Vein Open Sodium Chloride (Sodium Chloride 0.9% 2.5 Ml Syringe) 2.5 ml FLUSH ASDIRECTED PRN PRN Reason: Keep Vein Open Sodium Chloride (Sodium Chloride 0.9% 10 Ml Syringe) 10 ml FLUSH ASDIRECTED PRN PRN Reason: Keep Vein Open Sodium Chloride (Sodium Chloride 0.9% 2.5 Ml Syringe) 2.5 ml FLUSH ASDIRECTED PRN PRN Reason: Keep Vein Open Sodium Chloride (Sodium Chloride 0.9% 20 Ml Sdv) 10 ml IV ASDIRECTED PRN PRN Reason: IV Use
--- NOTE | 2021-04-30 10:29 | PCM.OPNOTE ---
- General Post-Op/Procedure Note Date of Surgery/Procedure: 04/30/21 Operative Procedure(s): Screening colonoscopy with polypectomy Findings: Transverse colon polyp x 2, sigmoid colon polyp x 2 Pre Op Diagnosis: History of colon polyp Post-Op Diagnosis: Transverse colon polyp x 2, sigmoid colon polyp x 2 Anesthesia Technique: General Mask Primary Surgeon: Evelia Barton Condition: Good
--- NOTE | 2021-04-30 10:30 | PCM.POSTAN ---
POST ANESTHESIA ASSESSMENT - MENTAL STATUS Mental Status: Alert, Oriented - VITAL SIGNS Vital Signs: Last Vital Signs Temp 96.4 F L 04/30/21 08:20 Pulse 78 04/30/21 08:20 Resp 16 04/30/21 08:20 BP 174/92 H 04/30/21 08:20 Pulse Ox 97 04/30/21 08:20 - RESPIRATORY Respiratory Status: Respiratory Rate WNL, Airway Patent, O2 Saturation Stable - CARDIOVASCULAR CV Status: Pulse Rate WNL, Blood Pressure Stable - GASTROINTESTINAL GI Status: No Symptoms - PAIN Pain Score: 0 - POST OP HYDRATION Hydration Status: Adequate & Stable
--- NOTE | 2021-04-30 10:41 | PCM48HPAN ---
Post Anesthesia Note - EVALUATION WITHIN 48HRS OF ANESTHETIC Vital Signs in Normal Range: Yes Patient Participated in Evaluation: Yes Respiratory Function Stable: Yes Airway Patent: Yes Cardiovascular Function Stable: Yes Hydration Status Stable: Yes Pain Control Satisfactory: Yes Nausea and Vomiting Control Satisfactory: Yes Mental Status Recovered: Yes Vital Signs: Last Vital Signs Temp 97.3 F 04/30/21 10:25 Pulse 74 04/30/21 10:35 Resp 17 04/30/21 10:35 BP 115/78 04/30/21 10:35 Pulse Ox 96 04/30/21 10:35 - COMMENTS/OBSERVATIONS Free Text/Narrative:: Pt doing well post-op. VSS. No apparent anesthetic complicaitions. Dr. Cheko Posada
[2021-04-30 11:15] VITALS: BP 125/75; PULSE 73
[~2021-04-30 11:17] MED LIST: Lactated Ringers 1,000 ML IV SCH; Propofol 200 MG/20 ML SDV ONE; Sodium Chloride 0.9% 10 ML Syringe FLUSH PRN; Sodium Chloride 0.9% 2.5 ML Syringe FLUSH PRN; Sodium Chloride 0.9% 20 ML SDV IV PRN; fentaNYL 100 MCG/2 ML SDV ONE
--- NOTE | 2021-04-30 16:25 | OR ---
SURGEON: EVELIA BARTON MD DATE OF PROCEDURE: 04/30/2021 PREOPERATIVE DIAGNOSIS: History of colon polyps. POSTOPERATIVE DIAGNOSES: 1. Transverse colon polyps x2. 2. Sigmoid colon polyps x2. PROCEDURE PERFORMED: Screening colonoscopy with polypectomy. PRIMARY SURGEON: Evelia Barton MD ANESTHESIA: General mask. INSTRUMENT USED: Olympus colonoscope. EXTENT OF THE EXAMINATION: To the cecum. PREPARATION: Good. LIMITATIONS: None. INDICATIONS FOR EXAMINATION: Patient is a 61-year-old male with a history of colon polyps, due for repeat colonoscopy. I explained the procedure, expected perioperative course, and the risks. He verbalized understanding and wishes to proceed. PROCEDURE IN DETAIL: Patient was brought in to the endoscopy suite and placed in a left lateral decubitus position. A time-out was completed verifying the patient's name, age, date of , allergies, and procedure to be performed. General mask anesthesia was induced and continuous oxygen was provided via face mask throughout the procedure. After adequate sedation was achieved, a digital rectal exam was performed. This exam was within normal limits. A well- lubricated colonoscope was inserted in the rectum and advanced under direct visualization to the level of the cecum. The cecum was identified by both visual and anatomic landmarks. A photograph was taken of the cecal cap, however, I was unable to retroflex the scope within the cecum due to looping of the scope more proximally. The scope was then fully withdrawn while examining the color, texture, anatomy, and integrity of the mucosa from the cecum to the anal canal. In the mid transverse colon, the patient was noted to have two sessile irregular-appearing polyps. These were both removed in piecemeal fashion using a cold biopsy forceps. Both were than inked for identification in the future. Photographs of these were taken. In the proximal sigmoid colon, the patient was noted to have a sessile polyp. This was removed in piecemeal fashion using a cold biopsy forceps. In the distal sigmoid colon, the patient had another sigmoid colon polyp which was removed using cold biopsy forceps. The scope was then brought into the rectum and retroflexed to allow visualization of the anal canal opening. This appeared normal and a photograph was taken. The scope was then straightened out and fully withdrawn. The cecum to anus time was 10 minutes. The patient tolerated the procedure well and was transferred to PACU in stable condition. ENDOSCOPIC DIAGNOSES: 1. Transverse colon polyps x2. 2. Sigmoid colon polyps x2. RECOMMENDATION: Follow up in clinic in two weeks. ALAN JUAREZ /[id number]
== END 2021-04-30 11:18 | disposition home or self-care (01) ==
LOC: MW.SDS 11:17
PROVIDERS: ATTEND Surgery
DX: D12.3 Benign neoplasm of transverse colon (principal); D12.5 Benign neoplasm of sigmoid colon; Z79.899 Other long term (current) drug therapy; Z90.49 Acquired absence of other specified parts of digestive tract; Z87.891 Personal history of nicotine dependence; Z98.890 Other specified postprocedural states
CPT/HCPCS: 45380; 45381; J2704; J3010; J7120; 00812

== ENCOUNTER 2021-05-01 21:54 | Emergency (ER) | payer BC ==
[2021-05-02 00:15] VITALS: PULSE 76
[2021-05-02 00:49] LABS: CORONAVIRUS COVID-19 NAA NEGATIVE (NEGATIVE); INFLUENZA A NAA NEGATIVE (NEGATIVE); INFLUENZA B NAA NEGATIVE (NEGATIVE)
--- NOTE | 2021-05-02 00:52 | CR ---
Indication: Lower abdominal pain, recent colonoscopy Technique: Upright PA view of the chest. Upright and supine views of the abdomen Comparison: One-view chest 08/12/2016 Findings: The lungs are clear. There is no evidence of pleural effusion or pneumothorax. The cardiomediastinal silhouette is normal. There is no free air under the diaphragm. There are no distended air-filled small bowel loops. No bowel air-fluid levels are demonstrated on upright view. There is mild air distention of the transverse and sigmoid colon. The visualized osseous structures are unremarkable. Impression: No acute intrathoracic process. Nonobstructive bowel gas pattern. No pneumoperitoneum. Dictated by Jewels Soto MD @ 05/02/2021 12:49:56 AM (Electronically Signed)
--- NOTE | 2021-05-02 01:03 | EDM.PDOC ---
ED HPI GENERAL MEDICAL PROBLEM - General Chief Complaint: Fever Stated Complaint: RECENT SURGERY, FEVER Time Seen by Provider: 05/01/21 23:58 - History of Present Illness INITIAL COMMENTS - FREE TEXT/NARRATIVE: CHIEF COMPLAINT(S): Fever HISTORY OF PRESENT ILLNESS: This is a 61-year-old man with a past medical history of BPH who comes to the emergency department with a chief complaint of fever. The patient states that he had a colonoscopy yesterday and on his discharge paperwork it tells him to return to the emergency department if he develops fever or abdominal pain. He states that today he felt that he suspected a fever all day and his temperature is normally around 97.5 and when he took his temperature it was 98.7 so he thinks he has a fever. He denies any cough, shortness of breath or any other symptoms. He states in addition to this he had some mild lower abdominal pain. He denies any blood in his stool and states that he did have a bowel movement this morning which was normal. He states that he has not taken anything for the pain and denies any other symptoms. REVIEW OF SYSTEMS: Constitutional: Positive for fever. Eyes: Denies eye pain Ears, Nose, Mouth, & Throat: Denies earache Cardiovascular: Denies chest pain Respiratory: Denies shortness of breath Gastrointestinal: Positive for abdominal pain. Denies Nausea, vomiting, diarrhea, hematochezia. Genitourinary: Denies hematuria Skin:Denies a rash MSK: Denies joint pain Neurological: Denies blurred vision Psychiatric: Denies depression PAST MEDICAL HISTORY: As per history of present illness and as reviewed below otherwise noncontributory. SURGICAL HISTORY: As per history of present illness and as reviewed below otherwise noncontributory. SOCIAL HISTORY: As per history of present illness and as reviewed below otherwise noncontributory. FAMILY HISTORY: As per history of present illness and as reviewed below otherwise noncontributory. EXAMINATION OF ORGAN SYSTEMS/BODY AREAS: Constitutional: Blood pressure is 150/86, heart rate 76, respiratory rate 20 with an oxygen saturation 99% on room air. Temperature 37.0 orally General: Well-appearing man who is in no acute distress Psychiatric: Appropriate mood and affect. Eyes: No scleral icterus or conjunctival erythema ENMT: Moist mucous membranes. No pharyngeal erythema Cardiovascular: Regular, rate, and rhythm. No gallops, murmurs, or rubs. Bilateral upper extremity pulses symmetric and intact. No peripheral edema. No JVD. Respiratory: Lungs clear to auscultation bilaterally. No wheezes, rales, or rhonchi. Gastrointestinal: Soft, non-tender, non-distended. Normoactive bowel sounds no rebound or guarding. Genitourinary: No suprapubic tenderness Musculoskeletal: Normal range of motion. Skin: No lesions or abrasions. Neurological: Alert, GCS 15 MEDICAL DECISION MAKING AND COURSE IN THE ED WITH INTERPRETATION/REVIEW OF DIAGNOSTIC STUDIES: This is a 61-year-old man with a past medical history of BPH and recent colonoscopy about 24 hours ago who comes to the emergency department with concern for fever and lower abdominal pain as described in his discharge paperwork. At this time the patient is currently afebrile and the patient does not have any abdominal pain on examination however given of his concerns we will obtain acute abdominal series with chest to evaluate for any free air. Will obtain Covid, influenza swabs. I do not believe any further labs or therapeutics are indicated. Given the duration of symptoms this is likely secondary to atelectasis from his surgery. I did discuss that he should continue with taking deep breaths and we will provide him with an incentive spirometer. He was amenable to this plan. Laboratory: COVID and influenza are negative. The radiological images were viewed by myself along with reading the report from the radiologist. Acute abdominal series does not reveal any evidence of free air or any evidence of acute thoracic or intra-abdominal process. After imaging I discussed the results with the patient. I did discuss at this time but I would be providing him with an incentive spirometer. I discussed strict return precautions with the patient. He is amenable to discharge at this time and had no further questions DISPOSITION: The patient was discharged home in stable condition. The patient will follow up with his primary care physician as needed CONDITION: Fair PROCEDURES: None FINAL IMPRESSION(S)/DIAGNOSES: 1. Acute encounter for medical screening examination 2. Acute reported fever likely secondary to postoperative atelectasis Bib Vasquez M.D. Abdomen Pain Score (Numeric/FACES): 2 - Related Data Allergies Allergy/AdvReac Type Severity Reaction Status Date / Time No Known Allergies Allergy Verified 05/02/21 00:15 Home Meds: Home Meds Acetaminophen [Tylenol Arthritis] 1 - 2 tab PO ASDIRECTED PRN 04/27/21 [History] Celecoxib 200 mg PO DAILY 04/27/21 [History] Finasteride 5 mg PO DAILY 04/27/21 [History] Multivit-Min/Vit C/Herb No.124 [Airborne Chewable Tablet] 1 tab CHEW ASDIRECTED PRN 04/27/21 [History] Tamsulosin HCl [Flomax] 0.4 mg PO DAILY 04/27/21 [History] Past Medical History HEENT History: Reports: Other (See Below) Other HEENT History: wears glasses Cardiovascular History: Reports: None Respiratory History: Reports: Asthma Other Respiratory History: "slight asthma" not on inhalers, Gastrointestinal History: Reports: Colon Polyp Other Gastrointestinal History: Occasional heartburn Genitourinary History: Reports: BPH Other Genitourinary History: elevated PSA Musculoskeletal History: Reports: Arthritis, Back Pain, Chronic, Fracture, Other (See Below) Other Musculoskeletal History: Right shoulder pain after injury, hx fracture Rt Index finger, fx wrist as a child Neurological History: Reports: None Psychiatric History: Reports: None Endocrine/Metabolic History: Reports: None Hematologic History: Reports: None Immunologic History: Reports: None Oncologic (Cancer) History: Reports: Other (See Below) Other Oncologic History: elevated PSA Dermatologic History: Reports: Other (See Below) Other Dermatologic History: dry skin in the winter - Infectious Disease History Infectious Disease History: Reports: Chicken Pox, Measles - Past Surgical History Head Surgeries/Procedures: Reports: None HEENT Surgical History: Reports: Oral Surgery Cardiovascular Surgical History: Reports: None Respiratory Surgical History: Reports: None GI Surgical History: Reports: Appendectomy, Colonoscopy Male Surgical History: Reports: Other (See Below) Other Male Surgeries/Procedures: multiple prostate biopsies Endocrine Surgical History: Reports: None Neurological Surgical History: Reports: None Musculoskeletal Surgical History: Reports: Other (See Below) Other Musculoskeletal Surgeries/Procedures:: bone spurs removed from both little toes Oncologic Surgical History: Reports: None Dermatological Surgical History: Reports: None - History Comment History Comment: etoh "DAILY" Social & Family History - Family History Family Medical History: No Pertinent Family History - Tobacco Use Tobacco Use Status *Q: Never Tobacco User Second Hand Smoke Exposure: No - Caffeine Use Caffeine Use: Reports: None - Recreational Drug Use Recreational Drug Use: No - Living Situation & Occupation Living situation: Reports: Occupation: Employed [employer] [facility] [employer] GENERAL - Review of Systems Review Of Systems: See Below ED EXAM, GENERAL - Physical Exam Exam: See Below Course - Vital Signs Last Recorded V/S: Last Vital Signs Temp 37.0 C 05/02/21 00:09 Pulse 76 05/02/21 02:13 Resp 16 05/02/21 02:13 BP 139/71 05/02/21 02:13 Pulse Ox 97 05/02/21 02:13 - Orders/Labs/Meds Labs: Laboratory Tests 05/02/21 Range/Units 00:07 Influenza Type A RNA NEGATIVE (NEGATIVE) Influenza Type B RNA NEGATIVE (NEGATIVE) SARS-CoV-2 RNA (OM[facility]) NEGATIVE (NEGATIVE) Departure - Departure Time of Disposition: : Disposition: Home, Self-Care 01 Condition: Fair Clinical Impression: Abdominal pain - Discharge Information *PRESCRIPTION DRUG MONITORING PROGRAM REVIEWED*: No *COPY OF PRESCRIPTION DRUG MONITORING REPORT IN PATIENT JUANCARLOS: No Instructions: Abdominal Pain, Adult Referrals: Dave Posada MD [Primary Care Provider] - Forms: ED Department Discharge Additional Instructions: You were evaluated today on an emergent basis. At this time your Covid and influenza are negative. In addition your imaging did not reveal any evidence of a perforated intestine. As discussed I would like you to use the incentive spirometer as described by our nursing staff. Please remember a fever is greater than 100.4 F. Please return to the emergency department if you have any worsening abdominal pain, chest pain or shortness of breath. Otherwise please follow-up with your primary care physician in 3 to 5 days. [facility] - Primary Care [address] [place] [address] [id number] The patient is informed of any results of their evaluation and diagnostic workup and all questions are answered. They are given discharge instructions and return precautions. The patient is stable for discharge. The patient states they understand and agree with the plan and that they will return if their symptoms get worse or if they have any new concerns. The following information is given to patients seen in the emergency department who are being discharged to home. This information is to outline your options for follow-up care. We provide all patients seen in our emergency department with a follow-up referral. The need for follow-up, as well as the timing and circumstances, are variable depending upon the specifics of your emergency department visit. If you don't have a primary care physician on staff, we will provide you with a referral. We always advise you to contact your personal physician following an emergency department visit to inform them of the circumstance of the visit and for follow-up with them and/or the need for any referrals to a consulting specialist. The emergency department will also refer you to a specialist when appropriate. This referral assures that you have the opportunity for follow-up care with a specialist. All of these measure are taken in an effort to provide you with optimal care, which includes your follow-up. Under all circumstances we always encourage you to contact your private physician who remains a resource for coordinating your care. When calling for follow-up care, please make the office aware that this follow-up is from your recent emergency room visit. If for any reason you are refused follow-up, please contact the [facility] at and asked to speak to the emergency department charge nurse. Sepsis Event Note (ED) - Evaluation Sepsis Screening Result: No Definite Risk
[2021-05-02 02:14] VITALS: BP 139/71
== END 2021-05-02 02:14 | disposition home or self-care (01) ==
LOC: MW.ED 21:54
DX: R10.30 Lower abdominal pain, unspecified (principal); R50.9 Fever, unspecified; J45.909 Unspecified asthma, uncomplicated; N40.0 Benign prostatic hyperplasia without lower urinary tract symptoms; M19.90 Unspecified osteoarthritis, unspecified site; Z79.899 Other long term (current) drug therapy; Z20.822 Contact with and (suspected) exposure to COVID-19
CPT/HCPCS: 0240U; 74022; 99284

== ENCOUNTER 2023-07-25 11:11 | Emergency (ER) | payer BC ==
[2023-07-25 12:01] LABS: BASOPHILS ABSOLUTE AUTO 0.05 K/uL (0.00-0.20); BASOPHILS PERCENT AUTO 0.2 % (0.0-1.0); EOSINOPHILS ABSOLUTE AUTO 0.01 K/uL (0.00-0.45); HEMATOCRIT 40.1 % (42.0-52.0); HEMOGLOBIN 14.5 g/dL (14.0-18.0); IMMATURE GRAN ABSOLUTE AUTO 0.15 K/uL (0.00-0.05); IMMATURE GRAN PERCENT AUTO 0.7 % (0.0-0.4); LYMPHOCYTES ABSOLUTE AUTO 1.08 K/uL (1.00-4.80); LYMPHOCYTES PERCENT AUTO 5.3 % (24.0-44.0); MEAN CORPUSCULAR HEMOGLOBIN 34.7 pg (28.0-32.0); MEAN CORPUSCULAR HGB CONC 36.2 g/dL (32.0-36.0); MEAN CORPUSCULAR VOLUME 95.9 fL (83.0-99.0); MEAN PLATELET VOLUME 8.3 fL (9.4-12.4); MONOCYTES PERCENT AUTO 5.9 % (0.0-8.0); NEUTROPHILS ABSOLUTE AUTO 17.72 K/uL (1.80-7.70); NEUTROPHILS PERCENT AUTO 87.9 % (41.0-71.0); PLATELET COUNT,PLT 288 K/uL (150-400); RED BLOOD CELL COUNT 4.18 M/uL (4.52-5.90); WHITE BLOOD CELL COUNT,WBC 20.21 K/uL (3.9-11.3)
[2023-07-25 12:39] LABS: ALBUMIN 3.8 g/dL (3.4-5.0); CALCIUM 8.9 mg/dL (8.5-10.1); CREATININE 1.1 mg/dL (0.8-1.3); EST CRCL DRUG DOSING (CG) 63.43 mL/min; MAGNESIUM 1.8 mg/dL (1.8-2.4); POTASSIUM,K 4.1 mmol/L (3.5-5.1); PROTEIN TOTAL,TP 7.6 g/dL (6.4-8.2)
[2023-07-25 12:42] VITALS: PULSE 98
[2023-07-25] MEDS: Iopamidol 755 MG/ML 500 ML Multipack Bottle IVPUSH STA (13:12)
[2023-07-25 14:29] VITALS: BP 166/85
== END 2023-07-25 16:27 | disposition home or self-care (01) ==
LOC: MW.ED 11:11
DX: R42 Dizziness and giddiness (principal); R20.2 Paresthesia of skin; D72.829 Elevated white blood cell count, unspecified; Z79.899 Other long term (current) drug therapy
CPT/HCPCS: 36415; 70450; 70496; 70498; 71046; 80053; 83735; 84484; 85025; 93005; 99284; Q9967; 93010